=== PATIENT | female | born 1970 ===

== ENCOUNTER 2024-11-16 18:39 | Emergency (ER) | payer OTHER ==
[2024-11-16 19:16] LABS: GLUCOSE,URINE 100 (NEGATIVE); OCCULT BLOOD,URINE MODERATE (NEGATIVE)
[2024-11-16 19:31] LABS: APPEARANCE,URINE SLIGHTLY CLOUDY (CLEAR)
[2024-11-16 19:32] LABS: EPITHELIAL CELLS,URINE FEW /HPF (NOT SEEN)
[2024-11-16] MEDS: Take Home: Ciprofloxacin HCl 500 MG, 6 Tab Pack PO ONE (19:48)
== END 2024-11-16 20:09 | disposition home or self-care (01) ==
LOC: DL.ED 18:39
DX: N30.01 Acute cystitis with hematuria (principal); I10 Essential (primary) hypertension; Z88.0 Allergy status to penicillin; Z88.2 Allergy status to sulfonamides; Z91.048 Other nonmedicinal substance allergy status; Z79.899 Other long term (current) drug therapy; Z90.49 Acquired absence of other specified parts of digestive tract
CPT/HCPCS: 81001; 87086; 87088; 87186; 99283; A9270